=== PATIENT | male | born 1990 | race African-American/Black ===

== ENCOUNTER 2018-05-14 19:17 | Emergency (ER) | payer BC, OTHER ==
[2018-05-14 19:27] VITALS: BP 130/84
[2018-05-14] MEDS ORDERED: AMOXICILLIN TRIHYDRATE 500 MG CAPSULE PO ONE (19:41)
--- NOTE | 2018-05-14 19:45 | ER Document Report ---
ED Medical Screen (RME) - General Chief Complaint: Sore Throat Stated Complaint: THROAT PAIN Time Seen by Provider: 05/14/18 19:37 TRAVEL OUTSIDE OF THE [place] IN LAST 30 DAYS: No - Related Data Allergies/Adverse Reactions: acetaminophen [From [place]] Adverse Reaction (Verified 04/18/16 23:54) hydrocodone [From [place]] Adverse Reaction (Verified 04/18/16 23:54) Past Medical History - Social History Chew tobacco use (# tins/day): No Frequency of alcohol use: Occasional Drug Abuse: Marijuana Endocrine Medical History: Denies: Hx Diabetes Mellitus Type 1, Hx Diabetes Mellitus Type 2 Renal/ Medical History: Denies: Hx Peritoneal Dialysis Musculoskeltal Medical History: Reports Hx Musculoskeletal Deformity, Reports Hx Musculoskeletal Trauma Psychiatric Medical History: Reports: Hx Attention Deficit Hyperactivity Disorder - CHILDHOOD Past Surgical History: Reports: Hx Orthopedic Surgery - right knee, Hx Tonsillectomy - Immunizations Immunizations up to date: Yes Hx Diphtheria, Pertussis, Tetanus Vaccination: Yes Physical Exam - Vital signs Vitals: Temp Pulse Resp BP Pulse Ox 98.1 F 78 18 130/84 H 97 05/14/18 19:25 05/14/18 19:25 05/14/18 19:25 05/14/18 19:25 05/14/18 19:25 Course - Vital Signs Vital signs: Temp Pulse Resp BP Pulse Ox 98.1 F 78 18 130/84 H 97 05/14/18 19:25 05/14/18 19:25 05/14/18 19:25 05/14/18 19:25 05/14/18 19:25 Doctor's Discharge - Discharge Clinical Impression: Pharyngitis Qualifiers: Pharyngitis/tonsillitis etiology: unspecified etiology Qualified Code(s): J02.9 - Acute pharyngitis, unspecified Condition: Stable Disposition: HOME, SELF-CARE Instructions: Sore Throat ([facility]) Additional Instructions: rest, take meds as prescribed, salt water gargle 4x/day, return if worse Prescriptions: Amoxicillin Trihydrate [Amoxil 500 mg Capsule] 500 mg PO TID #30 capsule Forms: Return to Work Referrals: CATRACHO CALDERÓN MD [ACTIVE STAFF] - Follow up as needed
== END 2018-05-14 19:46 | disposition home or self-care (01) ==
LOC: ER 19:17
DX: J02.9 Acute pharyngitis, unspecified (principal)
CPT/HCPCS: 99282

== ENCOUNTER 2018-08-08 08:41 | Emergency (ER) | payer SELFPAY ==
[2018-08-08 08:46] VITALS: BP 118/61
--- NOTE | 2018-08-08 09:53 | ER Document Report ---
HPI - HPI Patient complains to provider of: rash Time Seen by Provider: 08/08/18 08:53 Pain Level: 2 Context: Patient is a 28-year-old male presents to the emergency department with a generalized rash on the inside of his bilateral forearms for the last week. Patient states a friend told him it was ringworm so he has been putting on [id number] hydrocortisone cream. States he also has a generalized rash in between his toes on the right foot. States he also feels as though there is a Q-tip stuck in his right ear. Patient states he usually uses Q-tips on a daily basis and the cotton tip of a Q-tip did not come out last time he used the Q-tip to clean his ear. Past medical history: None Medications: None Allergies: Vicodin - REPRODUCTIVE Reproductive: DENIES: : Past Medical History - General Information source: Patient - Social History Smoking Status: Unknown if Ever Smoked Family History: Reviewed & Not Pertinent Endocrine Medical History: Denies: Hx Diabetes Mellitus Type 1, Hx Diabetes Mellitus Type 2 Renal/ Medical History: Denies: Hx Peritoneal Dialysis Musculoskeletal Medical History: Reports Hx Musculoskeletal Deformity, Reports Hx Musculoskeletal Trauma Psychiatric Medical History: Reports: Hx Attention Deficit Hyperactivity Disorder - CHILDHOOD Past Surgical History: Reports: Hx Orthopedic Surgery - right knee, Hx Tonsillectomy - Immunizations Immunizations up to date: Yes Hx Diphtheria, Pertussis, Tetanus Vaccination: Yes Vertical Provider Document - CONSTITUTIONAL Agree With Documented VS: Yes Notes: GENERAL: Alert, interacts well. No acute distress. HEAD: Normocephalic, atraumatic. EYES: Pupils equal, round, and reactive to light. Extraocular movements intact. ENT: Oral mucosa moist, tongue midline. Nares patent, TM and canal within normal limits left. Patient's right canal does have dark colored cerumen impaction with TM on visualized. No tragal tenderness noted. NECK: Full range of motion. Supple. Trachea midline. LUNGS: Clear to auscultation bilaterally, no wheezes, rales, or rhonchi. No respiratory distress. HEART: Regular rate and rhythm. No murmur ABDOMEN: Soft, non-tender. Non-distended. Bowel sounds present in all 4 quadrants. EXTREMITIES: Moves all 4 extremities spontaneously. No edema, normal radial and dorsalis pedis pulses bilaterally. No cyanosis. BACK: no cervical, thoracic, lumbar midline tenderness. No saddle anesthesia, normal distal neurovascular exam. NEUROLOGICAL: Alert and oriented x3. Normal speech. cranial nerves II through XII grossly intact PSYCH: Normal affect, normal mood. SKIN: Warm, dry, normal turgor. Multiple circular dry patches noted upper inner bilateral upper extremities. Dry , Crusted, excoriated lesions noted between toes right lower extremity. Capillary refill less than 2 seconds all 5 toes right foot. - INFECTION CONTROL TRAVEL OUTSIDE OF THE [place] IN LAST 30 DAYS: No Course - Re-evaluation Re-evalutation: 08/08/18 09:52 Pieces of the cotton may have potentially been caught in the cerumen in patient's right ear. Discussed use of Debrox [id number]-urvrets. Patient's rash on bilateral upper arms is consistent with ringworm. Patient's rash to bilateral right foot is consistent with athlete's foot. Discussed these diagnosis use with patient at length. Patient stable for discharge. - Vital Signs Vital signs: Temp Pulse Resp BP Pulse Ox 98.3 F 69 18 118/61 98 08/08/18 08:45 08/08/18 08:45 08/08/18 08:45 08/08/18 08:45 08/08/18 08:45 Discharge - Discharge Clinical Impression: Impacted cerumen of right ear, Ringworm, Athlete's foot on right Condition: Stable Disposition: HOME, SELF-CARE Instructions: Ringworm (Tinea Corporis) ([facility]), Cerumen Impaction ([facility]), Athletes Foot ([facility]) Prescriptions: Carbamide Peroxide [Debrox] 15 ml OT DAILY #3 drops Clotrimazole [Antifungal Ringworm] 14.2 gm TP BID #1 cream..g. Clotrimazole [Athlete's Foot] 60 gm TP BID #1 cream..g. Forms: Return to Work
== END 2018-08-08 10:06 | disposition home or self-care (01) ==
LOC: ER 08:41
DX: B35.9 Dermatophytosis, unspecified (principal); B35.3 Tinea pedis; H61.21 Impacted cerumen, right ear; Z88.5 Allergy status to narcotic agent
CPT/HCPCS: 99282

== ENCOUNTER 2018-10-06 00:55 | Emergency (ER) | payer SELFPAY ==
[2018-10-06] MEDS ORDERED: NORMAL SALINE 1000 ML 1,000 ML IV ONE (02:57)
[2018-10-06 03:32] LABS: ABSOLUTE BASOPHILS # (AUTO) 0.1 10^3/uL (0.0-0.2); ABSOLUTE EOSINOPHILS # (AUTO) 0.2 10^3/uL (0.0-0.6); ABSOLUTE LYMPHOCYTES (AUTO) 3.5 10^3/uL (0.5-4.7); ABSOLUTE MONOCYTES (AUTO) 0.4 10^3/uL (0.1-1.4); ABSOLUTE NEUT (AUTO) 2.5 10^3/uL (1.7-8.2); BASOPHILS % (AUTO) 0.8 % (0-2); EOSINOPHILS % (AUTO) 3.3 % (0-6); HEMATOCRIT 40.1 % (37.9-51.0); HEMOGLOBIN 13.8 g/dL (13.5-17.0); LYMPHOCYTES % (AUTO) 52.1 % (13-45); MEAN CORPUSCULAR HEMOGLOBIN 31.7 pg (27.0-33.4); MEAN CORPUSCULAR HGB CONC 34.4 g/dL (32.0-36.0); MEAN CORPUSCULAR VOLUME 92 fl (80-97); MONOCYTES % (AUTO) 6.8 % (3-13); PLATELET COUNT 233 10^3/uL (150-450); RED BLOOD COUNT 4.35 10^6/uL (4.35-5.55); RED CELL DISTRIBUTION WIDTH 13.6 % (11.5-14.0); TOTAL CELLS COUNTED % (AUTO) 100 %; WHITE BLOOD COUNT 6.7 10^3/uL (4.0-10.5)
[2018-10-06 03:37] LABS: INTERNATIONAL RATION (INR) 0.91; PARTIAL THROMBOPLASTIN TIME 32.6 SEC (23.5-35.8); PROTHROMBIN TIME 12.7 SEC (11.4-15.4)
[2018-10-06 03:39] LABS: APPEARANCE,URINE CLEAR; BILIRUBIN,URINE NEGATIVE (NEGATIVE); COLOR,URINE YELLOW; GLUCOSE, URINE NEGATIVE (NEGATIVE); KETONES,URINE NEGATIVE (NEGATIVE); LEUKOCYTE ESTERASE,URINE NEGATIVE (NEGATIVE); NITRITE,URINE NEGATIVE (NEGATIVE); PROTEIN,URINE NEGATIVE (NEGATIVE); URINE SPECIFIC GRAVITY 1.018
[2018-10-06 03:51] LABS: ALANINE AMINOTRANSFERASE 21 U/L (21-72); ALBUMIN 4.1 g/dL (3.5-5.0); ALKALINE PHOSPHATASE 53 U/L (38-126); ANION GAP 8 (5-19); ASPARTATE AMINO TRANSFERASE 23 U/L (17-59); BILIRUBIN,DIRECT 0.3 mg/dL (0.0-0.4); BILIRUBIN,TOTAL 0.4 mg/dL (0.2-1.3); BLOOD UREA NITROGEN 13 mg/dL (7-20); CALCIUM 10.2 mg/dL (8.4-10.2); CARBON DIOXIDE 29 mmol/L (22-30); CHLORIDE 103 mmol/L (98-107); GLUCOSE 86 mg/dL (75-110); LIPASE 141.5 U/L (23-300); POTASSIUM 4.1 mmol/L (3.6-5.0); TOTAL PROTEIN 7.1 g/dL (6.3-8.2)
[2018-10-06] MEDS ORDERED: LEVOFLOXACIN 750 MG/D5W RTU 750 MG/150 ML RTUPB IV ONE (04:58)
[2018-10-06] MEDS ORDERED: RINGERS SOLUTION,LACTATED 1,000 ML IV ONE (04:59)
--- NOTE | 2018-10-06 05:00 | ER Document Report ---
ED GI/ - General Chief Complaint: Abdominal Cramping Stated Complaint: STOMACH PAIN Time Seen by Provider: 10/06/18 02:56 Mode of Arrival: Ambulatory Information source: Patient TRAVEL OUTSIDE OF THE [place] IN LAST 30 DAYS: No - HPI Patient complains to provider of: Abdominal pain, Diarrhea. No: Vomiting Onset: Other - For the past 2 days. Timing/Duration: Sudden, Intermittent Quality of pain: Achy, Cramping Severity at maximum: Moderate Severity in ED: Mild Pain Level: 3 Context: Bad food Location: Other - Periumbilical Associated symptoms: None Exacerbated by: Denies Relieved by: Denies Similar symptoms previously: No Recently seen / treated by doctor: No - Related Data Allergies/Adverse Reactions: hydrocodone [From [facility] ([facility])] Adverse Reaction (Verified 08/08/18 08:42) Past Medical History - Social History Smoking Status: Current Every Day Smoker Drug Abuse: Marijuana Family History: Reviewed & Not Pertinent Patient has suicidal ideation: No Patient has homicidal ideation: No Endocrine Medical History: Denies: Hx Diabetes Mellitus Type 1, Hx Diabetes Mellitus Type 2 Renal/ Medical History: Denies: Hx Peritoneal Dialysis Musculoskeletal Medical History: Reports Hx Musculoskeletal Deformity, Reports Hx Musculoskeletal Trauma Psychiatric Medical History: Reports: Hx Attention Deficit Hyperactivity Di sorder - CHILDHOOD Past Surgical History: Reports: Hx Orthopedic Surgery - right knee, Hx Tonsillectomy - Immunizations Immunizations up to date: Yes Hx Diphtheria, Pertussis, Tetanus Vaccination: Yes Review of Systems - Review of Systems Constitutional: No symptoms reported EENT: No symptoms reported Cardiovascular: No symptoms reported Respiratory: No symptoms reported Gastrointestinal: Abdominal pain, Diarrhea, Nausea. denies: Vomiting Genitourinary: No symptoms reported Male Genitourinary: No symptoms reported Musculoskeletal: No symptoms reported Skin: No symptoms reported Hematologic/Lymphatic: No symptoms reported Neurological/Psychological: No symptoms reported -: Yes All other systems reviewed and negative Physical Exam - Vital signs Vitals: Temp Pulse Resp BP Pulse Ox 97.8 F 87 14 125/73 100 10/06/18 01:19 10/06/18 01:19 10/06/18 01:19 10/06/18 01:19 10/06/18 01:19 Interpretation: Normal - General General appearance: Appears well, Alert - HEENT Head: Normocephalic, Atraumatic Eyes: Normal Pupils: PERRL - Respiratory Respiratory status: No respiratory distress Chest status: Nontender Breath sounds: Normal Chest palpation: Normal - Cardiovascular Rhythm: Regular Heart sounds: Normal auscultation Murmur: No - Abdominal Inspection: Normal Distension: No distension Bowel sounds: Normal Tenderness: Nontender Organomegaly: No organomegaly - Back Back: Normal, Nontender - Extremities General upper extremity: Normal inspection, Nontender, Normal color, Normal ROM, Normal temperature General lower extremity: Normal inspection, Nontender, Normal color, Normal ROM, Normal temperature, Normal weight bearing. No: Tony's sign - Neurological Neuro grossly intact: Yes Cognition: Normal Orientation: AAOx4 [place] Coma Scale Eye Opening: Spontaneous [place] Coma Scale Verbal: Oriented [place] Coma Scale Motor: Obeys Commands [place] Coma Scale Total: 15 Speech: Normal Motor strength normal: LUE, RUE, LLE, RLE Sensory: Normal - Psychological Associated symptoms: Normal affect, Normal mood - Skin Skin Temperature: Warm Skin Moisture: Dry Skin Color: Normal Course - Vital Signs Vital signs: Temp Pulse Resp BP Pulse Ox 97.8 F 87 14 125/73 100 10/06/18 01:19 10/06/18 01:19 10/06/18 01:19 10/06/18 01:19 10/06/18 03:20 - Laboratory Result Diagrams: 10/06/18 03:12 10/06/18 03:12 Laboratory results interpreted by me: 10/06/18 10/06/18 03:12 03:12 Seg Neutrophils % 37.0 L Lymphocytes % 52.1 H Urine Blood SMALL H Urine Urobilinogen 2.0 H - Diagnostic Test Radiology reviewed: Reports reviewed Discharge - Discharge Clinical Impression: Abdominal pain Qualifiers: Abdominal location: periumbilical Qualified Code(s): R10.33 - Periumbilical pain Diarrhea Qualifiers: Diarrhea type: unspecified type Qualified Code(s): R19.7 - Diarrhea, unspecified Food poisoning Qualifiers: Encounter type: initial encounter Injury intent: accidental or unintentional Qualified Code(s): T62.91XA - Toxic effect of unspecified noxious substance eaten as food, accidental (unintentional), initial encounter Condition: Stable Disposition: HOME, SELF-CARE Additional Instructions: Please follow-up with your primary doctor or Dr. Shamar Suresh later today. Return to the emergency room if your condition worsens. Prescriptions: Ciprofloxacin HCl [Cipro 750 mg Tablet] 750 mg PO DAILY #7 tablet Promethazine HCl [Phenergan 25 mg Tablet] 25 mg PO Q6H PRN #12 tablet PRN Reason: Nausea and vomiting Referrals: SHAMAR SURESH DO [NO LOCAL MD] - Follow up as needed
--- NOTE | 2018-10-06 05:03 | RADIOLOGY REPORT (SQ) ---
EXAM DESCRIPTION: CT ABDOMEN PELVIS WITH IV CONTRAST COMPLETED DATE/TME: 10/06/2018 04:26 CLINICAL HISTORY: 28 years, Male, abdominal pain COMPARISON: None. TECHNIQUE: Axial CT images of the abdomen and pelvis were obtained after the administration of IV contrast. DLP 1539 Images stored on PACS. All CT scanners at this facility use dose modulation, iterative reconstruction, and/or weight based dosing when appropriate to reduce radiation dose to as low as reasonably achievable (ALARA). [facility]: Dose Right [facility]: CareDose [facility]: Dose Right [facility]: Teradose 4D [facility]: [employer] LIMITATIONS: None. FINDINGS: The lung bases are clear. The liver, gallbladder, pancreas, spleen, adrenal glands, and kidneys are normal. There is no hydronephrosis or hydroureter bilaterally. There is no intraperitoneal free air or fluid. There is no lymphadenopathy. The abdominal aorta is normal in caliber. The stomach appears unremarkable. There is mild thickening of the fluid-filled small bowel. The appendix is not uniquely identified, however there are no pericecal inflammatory changes. The colon contains a moderate amount of stool. The urinary bladder and prostate gland are unremarkable. The bones are unremarkable. IMPRESSION: Mild thickening of the fluid-filled small bowel, which is nonspecific and may be due to an enteritis. TECHNICAL DOCUMENTATION: Quality ID # [id number]: Final reports with documentation of one or more dose reduction techniques (e.g., Automated exposure control, adjustment of the mA and/or kV according to patient size, use of iterative reconstruction technique) copyright 2011 [email or web address]- All Rights Reserved
[2018-10-06 07:04] VITALS: BP 122/74
== END 2018-10-06 07:11 | disposition home or self-care (01) ==
LOC: ER 00:55
DX: T62.91XA Toxic effect of unspecified noxious substance eaten as food, accidental (unintentional), initial encounter (principal); R10.33 Periumbilical pain; R19.7 Diarrhea, unspecified; R10.9 Unspecified abdominal pain
CPT/HCPCS: 99284; 96361; 96365; 36415; 83690; 85025; 85610; 85730; 80053; 81001; 74177; J7030; J1956

== ENCOUNTER 2018-10-26 23:28 | Emergency (ER) | payer BC ==
[2018-10-27] MEDS ORDERED: NORMAL SALINE 500 ML IV ONE (03:48)
[2018-10-27] MEDS ORDERED: ONDANSETRON HCL INJ/PF 4 MG/2 ML SDV IV ONE (03:48)
[2018-10-27 04:33] LABS: HEMATOCRIT 40.6 % (37.9-51.0); HEMOGLOBIN 13.7 g/dL (13.5-17.0); MEAN CORPUSCULAR HEMOGLOBIN 31.5 pg (27.0-33.4); MEAN CORPUSCULAR HGB CONC 33.8 g/dL (32.0-36.0); MEAN CORPUSCULAR VOLUME 93 fl (80-97); PLATELET COUNT 199 10^3/uL (150-450); RED BLOOD COUNT 4.35 10^6/uL (4.35-5.55); RED CELL DISTRIBUTION WIDTH 13.7 % (11.5-14.0); WHITE BLOOD COUNT 6.3 10^3/uL (4.0-10.5)
[2018-10-27 04:49] LABS: ALANINE AMINOTRANSFERASE 21 U/L (21-72); ALBUMIN 4.1 g/dL (3.5-5.0); ALKALINE PHOSPHATASE 39 U/L (38-126); ANION GAP 5 (5-19); ASPARTATE AMINO TRANSFERASE 32 U/L (17-59); BILIRUBIN,DIRECT 0.2 mg/dL (0.0-0.4); BILIRUBIN,TOTAL 0.4 mg/dL (0.2-1.3); BLOOD UREA NITROGEN 9 mg/dL (7-20); CALCIUM 9.5 mg/dL (8.4-10.2); CARBON DIOXIDE 28 mmol/L (22-30); CHLORIDE 108 mmol/L (98-107); GLUCOSE 84 mg/dL (75-110); LIPASE 92.9 U/L (23-300); POTASSIUM 3.7 mmol/L (3.6-5.0); TOTAL PROTEIN 7.1 g/dL (6.3-8.2)
[2018-10-27 04:57] LABS: ABSOLUTE LYMPHOCYTES# (MANUAL) 3.7 10^3/uL (0.5-4.7); ABSOLUTE MONOCYTES # (MANUAL) 0.7 10^3/uL (0.1-1.4); ABSOLUTE NEUTROPHILS# (MANUAL) 1.6 10^3/uL (1.7-8.2); BAND NEUTROPHILS % (MANUAL) 2 % (3-5); BASOPHILS % (MANUAL) 0 % (0-2); EOSINOPHILS % (MANUAL) 6 % (0-6); LYMPHOCYTES % (MANUAL) 58 % (13-45); MONOCYTES % (MANUAL) 11 % (3-13); SEGMENTED NEUTROPHILS % (MAN) 23 % (42-78); TOTAL CELLS COUNTED 100
[2018-10-27 04:58] LABS: PLATELET COMMENT ADEQUATE; PLATELET LARGE PRESENT; RBC MORPHOLOGY COMMENT NORMO-CYTIC/CHROMIC
[2018-10-27] MEDS ORDERED: ONDANSETRON ODT 4 MG TAB (6 TAB/ER DISP) PO PRN (05:02)
--- NOTE | 2018-10-27 05:02 | ER Document Report ---
ED General - General Chief Complaint: Vomiting Stated Complaint: ABDOMINAL PAIN Time Seen by Provider: 10/27/18 01:38 Primary Care Provider: SHANEKA ESTRADA MD [ACTIVE STAFF] - Follow up in 3-5 days Notes: Patient is a pleasant 20-year-old male who presents with complaints of nausea and vomiting. He says he has some epigastric abdominal pain. He works at a [employer] for [employer]. He notices that when he goes to work that he feels more nauseous. He was actually seen here a few days ago and had a CT scan which showed some mild enteritis. Patient said he was prescribed Phenergan which helps. He says he notices that if he does not take Phenergan though he starts to feel more nauseous again. He also notes that the Phenergan makes him sleepy. He denies any blood in stool. No blood in his emesis. No diarrhea. No other complaints at this time. TRAVEL OUTSIDE OF THE [place] IN LAST 30 DAYS: No - Related Data Allergies/Adverse Reactions: hydrocodone [From [place]] Adverse Reaction (Verified 08/08/18 08:42) Past Medical History - Social History Smoking Status: Current Every Day Smoker Frequency of alcohol use: None Drug Abuse: None Family History: Reviewed & Not Pertinent Patient has suicidal ideation: No Patient has homicidal ideation: No Endocrine Medical History: Denies: Hx Diabetes Mellitus Type 1, Hx Diabetes Mellitus Type 2 Renal/ Medical History: Denies: Hx Peritoneal Dialysis Musculoskeletal Medical History: Reports Hx Musculoskeletal Deformity, Reports Hx Musculoskeletal Trauma Psychiatric Medical History: Reports: Hx Attention Deficit Hyperactivity Disorder - CHILDHOOD Past Surgical History: Reports: Hx Orthopedic Surgery - right knee, Hx Tonsillectomy - Immunizations Immunizations up to date: Yes Hx Diphtheria, Pertussis, Tetanus Vaccination: Yes Review of Systems - Review of Systems Notes: My Normal Review Basic REVIEW OF SYSTEMS: CONSTITUTIONAL : Denies fever, chills, or sweats. Denies recent illness. RESPIRATORY: Denies cough, cold, or chest congestion. Denies shortness of breath, difficulty breathing, or wheezing. GASTROINTESTINAL: Gastric pain. Some nausea. GENITOURINARY: Denies difficulty urinating, painful urination, burning, frequency, or blood in urine. MUSCULOSKELETAL: Denies neck or back pain or joint pain or swelling. SKIN: Denies rash or skin lesions. NEUROLOGICAL: Denies altered mental status or loss of consciousness. Denies headache. Denies weakness or paralysis or loss of use of either side. Denies problems with gait or speech. Denies sensory or motor loss. ALL OTHER SYSTEMS REVIEWED AND NEGATIVE. Physical Exam - Vital signs Vitals: Temp Pulse Resp BP Pulse Ox 98.0 F 55 L 16 114/59 L 100 10/27/18 00:43 10/27/18 00:43 10/27/18 00:43 10/27/18 00:43 10/27/18 00:43 - Notes Notes: General Appearance: Well nourished, alert, cooperative, no acute distress, no obvious discomfort. Well-appearing. Vitals: reviewed, See vital signs table. Head: no swelling or tenderness to the head Eyes: PERRL, EOMI, Conjuctiva clear Mouth: No decreasd moisture Lungs: No wheezing, No rales, No rhonci, No accessory muscle use, good air exchange bilaterally. Heart: Normal rate, Regular rythm, No murmur, no rub Abdomen: Normal BS, soft, No rigidity, mild epigastric abdominal tenderness to palpation., No guarding, no rebound, no abdominal masses, no organomegaly Extremities: strength 5/5 in all extremities, good pulses in all extremities, no swelling or tenderness in the extremities, no edema. Skin: warm, dry, appropriate color, no rash Neuro: speech clear, oriented x 3, normal affect, responds appropriately to questions. Course - Re-evaluation Re-evalutation: 10/27/18 06:12 Patient did well with the Zofran. He feels well and looks well. Laboratory evaluation is unremarkable. The exact cause of his nausea is not clear. It could be just working around the chickens and the smell of that as he does know says worse when he is at work. She does not have diarrhea and therefore I think a parasitic infection is less likely. I informed him that if he continues to have recurrent nausea despite the medicine he should follow-up with GI for reevaluation. Encouraged him return to ER if he has intractable vomiting, feve rs, worsening abdominal pain, or if he feels unwell. Patient agrees with plan will be discharged home. Dictation of this chart was performed using voice recognition software; therefore, there may be some unintended grammatical errors. - Vital Signs Vital signs: Temp Pulse Resp BP Pulse Ox 97.7 F 56 L 17 131/79 H 98 10/27/18 05:24 10/27/18 05:24 10/27/18 05:24 10/27/18 05:24 10/27/18 05:24 - Laboratory Result Diagrams: 10/27/18 04:10 10/27/18 04:10 Laboratory results interpreted by me: 10/27/18 10/27/18 04:10 04:10 Seg Neuts % (Manual) 23 L Band Neutrophils % 2 L Lymphocytes % (Manual) 58 H Abs Neuts (Manual) 1.6 L Chloride 108 H Discharge - Discharge Clinical Impression: Vomiting, Abdominal pain Condition: Good Disposition: HOME, SELF-CARE Additional Instructions: Currently your laboratory evaluation is unremarkable. Please take the Zofran for nausea as needed. This medicine will not make you sleepy or drowsy. If you continue to have these recurrent symptoms we may need to follow-up with a GI doctor due to recurrent nausea and vomiting and abdominal pain. The GI phy sician's name is Dr. Estrada. Please call his office to make follow-up appointment. Please return to the ER immediately if you have worsening pain, intractable vomiting, fevers, blood in your stool, bloody vomit, or if you feel unwell. Prescriptions: Ondansetron [Zofran Odt 4 mg Tablet] 1 tab PO Q4H PRN #15 tab.rapdis PRN Reason: For Nausea/Vomiting Forms: Return to Work Referrals: SHANEKA ESTRADA MD [ACTIVE STAFF] - Follow up in 3-5 days
[2018-10-27 05:25] VITALS: BP 131/79
== END 2018-10-27 05:25 | disposition home or self-care (01) ==
LOC: ER 23:28
DX: R11.2 Nausea with vomiting, unspecified (principal); R10.13 Epigastric pain; F17.200 Nicotine dependence, unspecified, uncomplicated
CPT/HCPCS: 99283; 96361; 96374; 36415; 83690; 85025; 80053; J2405; J7040